=== PATIENT | female | born 1965 | race Caucasian/White ===

== ENCOUNTER 2022-01-15 10:36 | Inpatient (IN) | payer BC, MEDICAID ==
[~2022-01-15] VITALS: Ht 167.6 cm; Wt 65.0 kg
[2022-01-15] MEDS ORDERED: normal saline 1000ML IV soln IV ONE (10:50)
[2022-01-15 11:13] LABS: BASOPHILS # (AUTO) 0.1 X10'3 (0-0.2); EOSINOPHILS # (AUTO) 0.1 X10'3 (0-0.9); EOSINOPHILS % (AUTO) 0.8 % (0-6); HEMATOCRIT 22.8 % (35.0-45.0); HEMOGLOBIN 7.7 g/dl (12.0-16.0); LYMPHOCYTES % (AUTO) 13.8 % (21-51); MEAN CORPUSCULAR HEMOGLOBIN 29.7 PG (27.0-31.0); MEAN CORPUSCULAR HGB CONC 33.7 g/dL (33.0-36.5); MEAN CORPUSCULAR VOLUME 88.2 FL (78-98); MEAN PLATELET VOLUME 8.1 FL (7.4-10.4); MONOCYTES # (AUTO) 0.9 X10'3 (0-0.9); MONOCYTES % (AUTO) 11.9 % (2-12); NEUTROPHILS # (AUTO) 5.3 X10'3 (1.8-7.7); NEUTROPHILS % (AUTO) 72.5 % (42-75); PLATELET COUNT 138 X10'3 (140-440); RED BLOOD COUNT 2.58 X10'6 (4.20-5.60); RED CELL DISTRIBUTION WIDTH 15.2 % (11.5-14.5); WHITE BLOOD COUNT 7.4 X10'3 (4.5-11.0)
[2022-01-15 11:32] LABS: CLARITY,URINE CLOUDY (Clear); COLOR,URINE YELLOW (Yellow); GLUCOSE, URINE NEGATIVE (Neg); KETONES,URINE NEGATIVE (Neg); LEUKOCYTE ESTERASE ,URINE TRACE (Neg); NITRITES, URINE NEGATIVE (Neg); OCCULT BLOOD,URINE SMALL (Neg); PROTEIN,URINE NEGATIVE (Neg); UROBILINOGEN,URINE 0.2 E.U/dL (0.2-1.0)
--- NOTE | 2022-01-15 11:33 | NUR ---
TO CT SCAN.
[2022-01-15 11:38] LABS: LACTIC SEPSIS 3.1 MMOL/L (0.4-2.0)
[2022-01-15 11:44] LABS: UA COLLECTION TYPE FOLEY CATH
[2022-01-15 11:45] LABS: ALANINE AMINOTRANSFERASE 15 U/L (12-78); ALBUMIN 2.1 G/DL (3.4-5.0); ALBUMIN/GLOBULIN RATIO 0.4 (1.1-1.5); ALKALINE PHOSPHATASE 79 IU/L (46-116); ANION GAP 14 (8-16); ASPARTATE AMINO TRANSFERASE 51 U/L (10-37); BILIRUBIN,TOTAL 1.4 MG/DL (0.1-1.0); BLOOD UREA NITROGEN 23 MG/DL (7-18); CALCIUM 8.8 MG/DL (8.5-10.1); CHLORIDE 107 MMOL/L (99-107); CREATININE 1.28 MG/DL (0.40-0.90); GLUCOSE 98 MG/DL (70-104); POTASSIUM 4.1 MMOL/L (3.5-5.1); SODIUM 145 MMOL/L (135-145); TOTAL PROTEIN 7.2 G/DL (6.4-8.2); eGFR 43 ML/MIN
[2022-01-15 11:46] LABS: SQUAMOUS EPITHELIAL CELL,UR MANY /LPF (FEW)
[2022-01-15 11:48] LABS: BACTERIA,URINE 2+ /HPF (Neg); WBC,URINE 20-30 /HPF (0-4)
[2022-01-15 11:49] LABS: ETHANOL < 0.010 GM/DL (0.0-0.010)
[2022-01-15 11:49] LABS: URINE AMPHETAMINE SCREEN NEGATIVE (Neg); URINE BARBITUATE SCREEN NEGATIVE (Neg); URINE BENZODIAZEPINES SCREEN POSITIVE (Neg); URINE CANNABINOID SCREEN NEGATIVE (Neg); URINE COCAINE SCREEN NEGATIVE (Neg); URINE METHADONE SCREEN NEGATIVE (Neg); URINE OPIATE SCREEN NEGATIVE (Neg); URINE PHENCYCLIDINE SCREEN NEGATIVE (Neg)
[2022-01-15] MEDS ORDERED: lactulose 20gm/30ml cup PO ONE (12:00)
[2022-01-15] MEDS ORDERED: CefTRIAXone 2gm/D5W 50ml BAG 50 ML IV ONE (12:05)
--- NOTE | 2022-01-15 12:17 | NUR ---
CALLED PT [employer] SARAHY GERBER, TO VERIFY PT ALLERGIES - ALLERGIC TO PCN- YEAST INFECTION
[2022-01-15] MEDS ORDERED: magnesium 2GM in 50ml NS 50 ML IV PRN (13:30)
[2022-01-15] MEDS ORDERED: magnesium 4gm in 100ml NS 100 ML IV PRN (13:30)
[2022-01-15] MEDS ORDERED: magnesium Cl slow-release 64mg tablet PO PRN (13:30)
[2022-01-15] MEDS ORDERED: potassium CL 10mEq/100ml bag 100 ML IV PRN (13:30)
[2022-01-15] MEDS ORDERED: normal saline 1000ml 1,000 ML IV SCH (13:30)
[2022-01-15] MEDS ORDERED: POTASSIUM BICARB 20meq eff tab 20 MEQ TABLET.EFF PO PRN ×2 (13:30)
[2022-01-15] MEDS ORDERED: ondansetron/PF 4mg/2ml inj IV PRN (13:30)
[2022-01-15 13:42] LABS: MAGNESIUM 2.3 MG/DL (1.5-2.4)
--- NOTE | 2022-01-15 14:10 | NUR ---
pt able to drink craneberry juice ,mixed the lactulose in juice and given it to the pt , at bedside,will cont to monitor.
[2022-01-15] MEDS ORDERED: SPIR100T5 PO (14:35)
[2022-01-15] MEDS ORDERED: NYST1000 PO (14:35)
[2022-01-15] MEDS ORDERED: LACT10SO3 PO (14:35)
[2022-01-15] MEDS ORDERED: PANT40TA54 PO (14:35)
[2022-01-15] MEDS ORDERED: TRAM50TA2 PO (14:35)
[2022-01-15] MEDS ORDERED: FURO40TA4 PO (14:35)
[2022-01-15] MEDS ORDERED: CIPR250T4 PO (14:35)
[2022-01-15] MEDS ORDERED: POTA-82 PO (14:35)
[2022-01-15] MEDS ORDERED: MAGN400T56 PO (14:35)
[2022-01-15] MEDS ORDERED: ALPR1TAB7 PO (14:35)
[2022-01-15] MEDS ORDERED: CARB15DR OP (14:36)
--- NOTE | 2022-01-15 17:52 | NUR ---
Received patient to room 3013A via gurney accompanied by x2 staff. Patient is alert and oriented x1. Patient has handley catheter draining clear yellow urine to gravity. Patient incontinent of black tarry stool, stephy care provided. Oriented patient to room and call light. Call light placed within patient's reach. Bed low and locked, side railsx2 up, bed alarm on. Will reorient patient as needed.
[2022-01-15 17:56] VITALS: BP 111/43
--- NOTE | 2022-01-15 18:00 | NUR ---
PAGER ID: [phone] MESSAGE: [id number]- Trixie Higginbotham- pt had episode of black tarry stool. do you want a stool sample next time? - [place] [id number]
--- NOTE | 2022-01-15 18:15 | NUR ---
Problems reprioritized. Patient report given, questions answered & plan of care reviewed with MARYANA Negron.
[2022-01-15] MEDS: K and/or MAG REPLACEMENT MC SCH (20:00)
--- NOTE | 2022-01-15 20:00 | NUR ---
Pt is confused and unable to answer questions, attempted to call for answers to admission process, left message, no response as of yet.
[2022-01-15 22:00] VITALS: BP 112/50
[2022-01-15] MEDS ORDERED: CefTRIAXone/D5W-Rocephin 1gm 50 ML IV ONE (23:00)
[2022-01-15] MEDS: pantoprazole 40MG/NS 100ML BAG 100 ML IV SCH (23:38)
[2022-01-16 02:00] VITALS: BP 110/53
[2022-01-16 06:30] VITALS: BP 107/47
--- NOTE | 2022-01-16 06:46 | NUR ---
Patient in room PCU 3013. I have received report from Nano Negron and had the opportunity to ask questions and assume patient care.
[2022-01-16 07:37] LABS: BASOPHILS # (AUTO) 0.1 X10'3 (0-0.2); BASOPHILS % (AUTO) 1.3 % (0-1); EOSINOPHILS # (AUTO) 0.3 X10'3 (0-0.9); EOSINOPHILS % (AUTO) 5.9 % (0-6); LYMPHOCYTES # (AUTO) 1.1 X10'3 (1.1-4.8); LYMPHOCYTES % (AUTO) 21.1 % (21-51); MEAN CORPUSCULAR HEMOGLOBIN 30.2 PG (27.0-31.0); MEAN CORPUSCULAR HGB CONC 33.7 g/dL (33.0-36.5); MEAN CORPUSCULAR VOLUME 89.6 FL (78-98); MEAN PLATELET VOLUME 8.2 FL (7.4-10.4); MONOCYTES # (AUTO) 0.8 X10'3 (0-0.9); MONOCYTES % (AUTO) 15.4 % (2-12); NEUTROPHILS % (AUTO) 56.3 % (42-75); PLATELET COUNT 111 X10'3 (140-440); RED BLOOD COUNT 2.11 X10'6 (4.20-5.60); RED CELL DISTRIBUTION WIDTH 15.2 % (11.5-14.5); WHITE BLOOD COUNT 5.3 X10'3 (4.5-11.0)
[2022-01-16 07:47] LABS: HEMATOCRIT 18.9 % (35.0-45.0); HEMOGLOBIN 6.4 g/dl (12.0-16.0)
--- NOTE | 2022-01-16 07:49 | NUR ---
Message: [id number]- Trixie Higginbotham- Critical H/H 6.4/18.9 yesterday was 7.7/22.8 VS 98.5, 86, 19, 100RA, 107/47. pt still confused. pulled out x2 IV this am. - [place] [id number]
[2022-01-16] MEDS ORDERED: lactulose 20gm/30ml cup PO SCH (08:00)
[2022-01-16] MEDS: K and/or MAG REPLACEMENT MC SCH ×2 (08:00→20:00)
[2022-01-16 08:06] LABS: ALBUMIN 1.8 G/DL (3.4-5.0); ANION GAP 8 (8-16); BLOOD UREA NITROGEN 17 MG/DL (7-18); BUN/CREATININE RATIO 17.9 (6.6-38.0); CALCIUM 7.9 MG/DL (8.5-10.1); CHLORIDE 116 MMOL/L (99-107); CREATININE 0.95 MG/DL (0.40-0.90); GLUCOSE 82 MG/DL (70-104); MAGNESIUM 1.9 MG/DL (1.5-2.4); POTASSIUM 3.6 MMOL/L (3.5-5.1); SODIUM 146 MMOL/L (135-145); TOTAL CARBON DIOXIDE 21.8 MMOL/L (24-32); eGFR 60 ML/MIN
[2022-01-16] MEDS: magnesium oxide 400mg tablet PO SCH ×2 (08:09→20:24)
[2022-01-16] MEDS: spironolactone 25 MG tablet PO SCH (08:10)
[2022-01-16] MEDS: pantoprazole 40MG/NS 100ML BAG 100 ML IV SCH (08:10)
[2022-01-16 08:11] LABS: LYMPHOCYTES % (MANUAL) 15.5 % (21-51); NEUTROPHILS % (MANUAL) 63.5 % (42-75); TOTAL CELLS COUNTED 200
[2022-01-16 08:12] LABS: PLATELET ESTIMATE DECREASED
[2022-01-16 11:35] LABS: MEAN CORPUSCULAR HEMOGLOBIN 29.9 PG (27.0-31.0); MEAN CORPUSCULAR HGB CONC 33.2 g/dL (33.0-36.5); MEAN CORPUSCULAR VOLUME 90.2 FL (78-98); MEAN PLATELET VOLUME 8.2 FL (7.4-10.4); PLATELET COUNT 114 X10'3 (140-440); RED BLOOD COUNT 2.25 X10'6 (4.20-5.60); RED CELL DISTRIBUTION WIDTH 15.4 % (11.5-14.5); WHITE BLOOD COUNT 5.1 X10'3 (4.5-11.0)
[2022-01-16 11:42] LABS: HEMATOCRIT 20.3 % (35.0-45.0); HEMOGLOBIN 6.7 g/dl (12.0-16.0)
--- NOTE | 2022-01-16 11:45 | NUR ---
Message: [id number]- Trixie Higginbotham- hgb/hct 6.7/20.3. Spouse Azael at bedside and states patient would not want blood transfusion. - [facility] – [place], [place] [address]
[2022-01-16] MEDS: cefepime 2g/NS 100ml ADVANTAGE 100 ML IV SCH ×2 (11:49→20:26)
[2022-01-16 12:13] VITALS: BP 112/50
--- NOTE | 2022-01-16 13:09 | NUR ---
Dr. Linares in to see patient. Patient's spouse Don at bedside. Dr. Linares discussed with patient and spouse blood transfusion and EGD however patient and spouse both refused. Dr. Linares explained risk of and patient and patient's spouse continue to refuse blood transfusion and EGD treatment.
--- NOTE | 2022-01-16 14:41 | NUR ---
Patient stated last bowel movement was 01/15/22. Bowel movement was not evidenced by myself (student).
[2022-01-16 15:28] LABS: OCCULT BLOOD STOOL POSITIVE (Neg)
--- NOTE | 2022-01-16 15:36 | NUR ---
DC handley catheter. Paitent handley urine output 550mL at 1530. Urine was yellow with no concerns. Patient tolerated removal of handley with zero complaints of dysuria.
[2022-01-16 15:38] VITALS: BP 97/42
--- NOTE | 2022-01-16 15:55 | NUR ---
Message: [id number]- Trixie Higginbotham- occult stool positive- [facility] [place] [address]
[2022-01-16] MEDS: lactulose 20gm/30ml cup PO SCH ×2 (16:37→20:24)
--- NOTE | 2022-01-16 18:16 | NUR ---
PAGER ID: [phone] MESSAGE: [id number]- Trixie Higginbotham- 24 hour tele about to . SR. Do you want to continue or ok to dc?- [place] [id number]
--- NOTE | 2022-01-16 18:19 | NUR ---
Problems reprioritized. Patient report given, questions answered & plan of care reviewed with MARYANA Negron.
[2022-01-16] MEDS: lactobacillus rhamnosus 10,000 MMU CELLS/CAPSULE PO SCH (20:24)
[2022-01-16 22:00] VITALS: BP 105/54
[2022-01-17 02:00] VITALS: BP 106/49
[2022-01-17] MEDS: lactulose 20gm/30ml cup PO SCH ×4 (04:00→11:57)
--- NOTE | 2022-01-17 06:27 | NUR ---
Patient in room PCU 3013. I have received report from MARYANA Negron and had the opportunity to ask questions and assume patient care.
[2022-01-17 07:00] VITALS: BP 100/49
[2022-01-17 07:18] LABS: BASOPHILS # (AUTO) 0.1 X10'3 (0-0.2); BASOPHILS % (AUTO) 1.1 % (0-1); EOSINOPHILS # (AUTO) 0.4 X10'3 (0-0.9); EOSINOPHILS % (AUTO) 7.8 % (0-6); LYMPHOCYTES # (AUTO) 1.5 X10'3 (1.1-4.8); LYMPHOCYTES % (AUTO) 27.8 % (21-51); MEAN CORPUSCULAR HEMOGLOBIN 29.7 PG (27.0-31.0); MEAN CORPUSCULAR HGB CONC 33.3 g/dL (33.0-36.5); MEAN CORPUSCULAR VOLUME 89.3 FL (78-98); MEAN PLATELET VOLUME 8.4 FL (7.4-10.4); MONOCYTES # (AUTO) 0.8 X10'3 (0-0.9); MONOCYTES % (AUTO) 15.3 % (2-12); NEUTROPHILS # (AUTO) 2.6 X10'3 (1.8-7.7); PLATELET COUNT 102 X10'3 (140-440); RED BLOOD COUNT 2.15 X10'6 (4.20-5.60); RED CELL DISTRIBUTION WIDTH 15.9 % (11.5-14.5); WHITE BLOOD COUNT 5.5 X10'3 (4.5-11.0)
[2022-01-17 07:29] LABS: HEMATOCRIT 19.2 % (35.0-45.0); HEMOGLOBIN 6.4 g/dl (12.0-16.0)
[2022-01-17 07:30] LABS: ALANINE AMINOTRANSFERASE 16 U/L (12-78); ALBUMIN 1.8 G/DL (3.4-5.0); ALBUMIN/GLOBULIN RATIO 0.4 (1.1-1.5); ALKALINE PHOSPHATASE 68 IU/L (46-116); ANION GAP 9 (8-16); ASPARTATE AMINO TRANSFERASE 49 U/L (10-37); BILIRUBIN,TOTAL 1.2 MG/DL (0.1-1.0); BLOOD UREA NITROGEN 12 MG/DL (7-18); BUN/CREATININE RATIO 12.6 (6.6-38.0); CALCIUM 7.7 MG/DL (8.5-10.1); CHLORIDE 111 MMOL/L (99-107); CREATININE 0.95 MG/DL (0.40-0.90); GLUCOSE 92 MG/DL (70-104); MAGNESIUM 1.7 MG/DL (1.5-2.4); PHOSPHORUS 2.4 MG/DL (2.3-4.5); SODIUM 141 MMOL/L (135-145); TOTAL CARBON DIOXIDE 21.3 MMOL/L (24-32); eGFR 60 ML/MIN
--- NOTE | 2022-01-17 07:36 | NUR ---
Message: [id number]- Trixie Higginbotham- Hgb/ hct- 6.4/19.2 vs 98.6, 80, 16, 100 RA, 100/49.- [place] 5441 Transaction number: [id number]
[2022-01-17 07:43] LABS: POTASSIUM 2.9 MMOL/L (3.5-5.1)
[2022-01-17] MEDS: pantoprazole 40MG/NS 100ML BAG 100 ML IV SCH (07:44)
[2022-01-17] MEDS: magnesium oxide 400mg tablet PO SCH (07:44)
[2022-01-17] MEDS: spironolactone 25 MG tablet PO SCH (07:44)
[2022-01-17] MEDS: lactobacillus rhamnosus 10,000 MMU CELLS/CAPSULE PO SCH (07:44)
--- NOTE | 2022-01-17 07:50 | NUR ---
Message: [id number]- Trixie Higginbotham- critical k 2.9 replacing per protocol. - [facility] [place]
[2022-01-17] MEDS: K and/or MAG REPLACEMENT MC SCH (08:00)
[2022-01-17] MEDS: cefepime 2g/NS 100ml ADVANTAGE 100 ML IV SCH (08:13)
[2022-01-17 09:33] LABS: ANISOCYTOSIS 1+; HYPOCHROMASIA 1+; PLATELET ESTIMATE DECREASED; POLYCHROMASIA 1+
[2022-01-17 09:34] LABS: ROULEAUX 1+
--- NOTE | 2022-01-17 09:50 | NUR ---
Patient refusing to have paracentesis. Patient spouse at bedside. Patient states, "I've already been to two different hospitals and they've both tried. There isn't anything there to drain." Will notify Dr. Linares.
--- NOTE | 2022-01-17 09:55 | NUR ---
Patient asked several times if she would be dc today and stated, "I will not stay another night." Dr Linares notified.
--- NOTE | 2022-01-17 09:55 | NUR ---
Message: [id number]- Trixie Higginbotham- pt refuses paracentesis. Repeatedly asking for dc. Thank you- [place] 1281 Custom Responses: promotional table spacer Transaction number: [id number]
[2022-01-17 10:06] LABS: MEAN CORPUSCULAR HEMOGLOBIN 29.5 PG (27.0-31.0); MEAN CORPUSCULAR HGB CONC 33.1 g/dL (33.0-36.5); MEAN CORPUSCULAR VOLUME 89.2 FL (78-98); MEAN PLATELET VOLUME 8.5 FL (7.4-10.4); PLATELET COUNT 109 X10'3 (140-440); RED CELL DISTRIBUTION WIDTH 15.8 % (11.5-14.5); WHITE BLOOD COUNT 5.4 X10'3 (4.5-11.0)
[2022-01-17 10:12] LABS: HEMATOCRIT 19.6 % (35.0-45.0); HEMOGLOBIN 6.5 g/dl (12.0-16.0)
--- NOTE | 2022-01-17 10:14 | NUR ---
Message: [id number]- Trixie Higginbotham- H/H 6.5/19.6. This AM was 6.4/19.2- [place] 5441 Custom Responses: promotional table spacer Transaction number: [id number]
--- NOTE | 2022-01-17 11:06 | NUR ---
Dr. Linares in to see patient along with WOODY Jim and spouse at bedside. Patient refusing to have EGD, blood transfusion and paracentesis and wanting to leave AMA.
[2022-01-17] MEDS ORDERED: potassium Cl 20 mEq SR tablet PO STA (11:07)
[2022-01-17 11:28] VITALS: BP 113/55
--- NOTE | 2022-01-17 12:25 | NUR ---
Patient left AMA. IV dc'd. Spouse at bedside. Patient escorted out in wheelchair due to risk for falls.
== END 2022-01-17 12:15 | disposition left against medical advice (07) | DRG 871 ==
LOC: ER 10:37 → ED HOLD 13:28 → PCU 3S 17:34
PROVIDERS: ADMIT Internal Medicine; ATTEND Internal Medicine
DX: A41.9 Sepsis, unspecified organism (principal); N17.0 Acute kidney failure with tubular necrosis; K76.6 Portal hypertension; K92.2 Gastrointestinal hemorrhage, unspecified; N39.0 Urinary tract infection, site not specified; R18.8 Other ascites; E46 Unspecified protein-calorie malnutrition; K76.82 Hepatic encephalopathy; K74.60 Unspecified cirrhosis of liver; Z53.29 Procedure and treatment not carried out because of patient's decision for other reasons; D64.9 Anemia, unspecified; W18.39XA Other fall on same level, initial encounter; N18.9 Chronic kidney disease, unspecified; K72.10 Chronic hepatic failure without coma; F41.9 Anxiety disorder, unspecified; K21.9 Gastro-esophageal reflux disease without esophagitis; K76.9 Liver disease, unspecified; Z87.440 Personal history of urinary (tract) infections; Z88.0 Allergy status to penicillin; Y93.89 Activity, other specified; Y92.89 Other specified places as the place of occurrence of the external cause; Y99.8 Other external cause status; Z79.899 Other long term (current) drug therapy; Z68.23 Body mass index [BMI] 23.0-23.9, adult
CPT/HCPCS: 36415; 70450; 70486; 71045; 72125; 74176; 80048; 80053; 80305; 80320; 81001; 82140; 82272; 82728; 83540; 83550; 83605; 83735; 84100; 84145; 84443; 84484; 85007; 85008; 85025; 85027; 85610; 87040; 87077; 87088; 87186; 93005; 99285; A4314; C1758; C9113; G0378; J0692; J0696; J7030